=== PATIENT | male | born 1980 | race African-American/Black ===

== ENCOUNTER 2022-09-15 08:52 | Emergency (ER) | payer OTHER ==
[~2022-09-15] VITALS: Ht 182.9 cm; Wt 104.3 kg
[2022-09-15] MEDS ORDERED: KETOROLAC TROMETHAMINE 60 MG/2 ML VIAL IM ONE (09:15)
[2022-09-15] MEDS ORDERED: KETOROLAC TROMETHAMINE 60 MG/2 ML VIAL ONE (09:27)
== END 2022-09-15 10:15 | disposition home or self-care (01) ==
LOC: ER 08:56
DX: M79.18 Myalgia, other site (principal); M54.9 Dorsalgia, unspecified
CPT/HCPCS: 71046; 99282; J1885